=== PATIENT | female | born 1975 | race Caucasian/White ===

== ENCOUNTER 2022-12-31 13:45 | Outpatient (RCR) | payer OTHER, SELFPAY | END 2023-04-30 23:59 | disposition home or self-care (01) | PROVIDERS: PCP Family Medicine; Visit Provider Family Medicine | DX: S06.0X0D Concussion without loss of consciousness, subsequent encounter (principal); M54.9 Dorsalgia, unspecified; Z51.89 Encounter for other specified aftercare | CPT/HCPCS: 97110; 97140; 97162 ==

== ENCOUNTER 2023-04-02 15:21 | Emergency (ER) | payer OTHER, SELFPAY ==
[2023-04-02 15:24] VITALS: BP 137/89; PULSE 67; RESP 20; TEMP 36.2; O2SAT 987; BMI 41.1
--- NOTE | 2023-04-02 15:51 | ED.UPPEXIN ---
HPI - Extremity Injury (Upper) General Chief Complaint: Extremity Pain/Injury, Upper Stated Complaint: Injury on left pointer finger Time Seen by Provider: 04/02/23 15:24 History of Present Illness HPI narrative: This 47-year-old female has an injury to her left index finger that occurred yesterday. She states that she was throwing down a piece of ceramic and sustained a avulsion type injury to the pad at the distal portion of her left index finger. She applied a Band-Aid yesterday and today had too much pain trying to remove the bandage as the dressing is adhered to the wound. She states that her tetanus is up-to-date. Related Data Home Medications Medication Instructions Recorded Confirmed atenolol 25 mg tablet 25 mg PO DAILY 04/02/23 04/02/23 fluoxetine 20 mg capsule 20 mg PO DAILY 04/02/23 04/02/23 fluoxetine 40 mg capsule 40 mg PO DAILY 04/02/23 04/02/23 gabapentin 100 mg capsule PO 04/02/23 omeprazole 40 mg capsule,delayed 40 mg PO DAILY 04/02/23 04/02/23 release tramadol 50 mg tablet 50 mg PO DAILY PRN 04/02/23 04/02/23 Allergies Allergy/AdvReac Type Severity Reaction Status Date / Time diphenhydramine Allergy Intermediate Verified 04/02/23 15:30 [From Shane] Review of Systems Status of ROS: Reports: 10 or more systems reviewed and unremarkable except as noted in History and below Narrative: Constitutional: No fevers, no weight gain or loss. Eyes: No discharge. No vision changes. HENT: No congestion, no sore throat, no ear pain. Cardiovascular: No chest pain, no palpitations. Respiratory: No shortness of breath, no wheezes, no cough. Gastrointestinal: No abdominal pain, no vomiting, no diarrhea. Genitourinary: No dysuria, no hematuria. Musculoskeletal: Normal range of motion. Skin: No rashes, no pruritis. Neurological: No dizziness, weakness, sensory change, speech change. Endo/Heme/Allergies: No bruising or bleeding. No polydipsia. Pysch: no suicidality, no anxiety, no insomnia. All other systems reviewed and are negative. Exam Narrative: Exam Narrative: Constitutional: Well-developed, well-nourished, no acute distress. HEENT: Normocephalic, atraumatic. Neck: Normal range of motion. Nontender. Supple. Heart: Intact distal pulses. Lungs: No chest discomfort. No wheezes, rhonchi, or rales. Abdomen: Nontender. Back: Normal range of motion. Extremities: Normal range of motion. Small avulsion type injury of the pad on the distal portion of the left index finger. Skin: Intact. No rash. Warm. No erythema or pallor. Neurologic: No altered sensation. No weakness. Alert and oriented. Psychiatric: No suicidality. No anxiety or depression. No insomnia. Nursing notes and vitals signs are reviewed. Const: Vital Signs, click to edit/add: Vital Signs - 24 hr 04/02/23 15:24 Temperature 97.1 F L Pulse Rate [Pulse Oximeter] 67 Respiratory Rate 20 Blood [facility] 137/89 Pulse Oximetry 987 H Oxygen Delivery Me thod Room Air Course Vital Signs Vital signs: Initial Vital Signs Temperature 97.1 F L 04/02/23 15:24 Temperature Source Temporal Artery Scan 04/02/23 15:24 Pulse Rate 67 04/02/23 15:24 Respiratory Rate 20 04/02/23 15:24 Blood Pressure 137/89 04/02/23 15:24 Blood Pressure Mean 105 04/02/23 15:24 Blood Pressure Position Sitting 04/02/23 15:24 Pulse Oximetry 987 H 04/02/23 15:24 Oxygen Delivery Method Room Air 04/02/23 15:24 Vital Signs Temperature 97.1 F L 04/02/23 15:24 Pulse Rate 67 04/02/23 15:24 Respiratory Rate 20 04/02/23 15:24 Blood Pressure 137/89 04/02/23 15:24 Pulse Oximetry 987 H 04/02/23 15:24 Oxygen Delivery Method Room Air 04/02/23 15:24 Temperature 97.1 F L 04/02/23 15:24 Pulse Rate 67 04/02/23 15:24 Respiratory Rate 20 04/02/23 15:24 Blood Pressure 137/89 04/02/23 15:24 Pulse Oximetry 987 H 04/02/23 15:24 Oxygen Delivery Method Room Air 04/02/23 15:24 MDM - Extremity Injury (Upper) MDM Narrative Medical decision making narrative: This patient has an injury to her left index finger. A bandage was too painful to remove so she came in for further evaluation and treatment. She did soak her finger in liquid here for about 15 minutes and the bandage was removed without much discomfort. She does have a small avulsion type injury on the palmar aspect of the distal portion of her left index finger. There is no need for additional repair at this time besides the fact that it is an injury that occurred more than 12 hours ago. The wound was cleansed and a nonstick dressing was applied and instructions regarding wound care were given. Discharge Plan Discharge Clinical Impression: Laceration Patient Disposition: Home, Self-Care Condition: Stable Additional Instructions: Keep dressing in place for 1-2 days then a regular Band-Aid can be used for ongoing care of this wound. Use [id number] medicines also as needed and directed. Return if worsening. Prescriptions: No Action fluoxetine 40 mg capsule 40 mg PO DAILY atenolol 25 mg tablet 25 mg PO DAILY omeprazole 40 mg capsule,delayed release(DR/EC) 40 mg PO DAILY tramadol 50 mg tablet 50 mg PO DAILY PRN gabapentin 100 mg capsule PO fluoxetine 20 mg capsule 20 mg PO DAILY Follow Up/Referrals: Viviane Marie MD [Primary Care Provider] - Stand Alone Forms: [employer] Info Instructions
== END 2023-04-02 16:19 | disposition home or self-care (01) ==
LOC: ED 16:12
PROVIDERS: Emergency Provider Emergency Medicine Emergency Medical Services; PCP Family Medicine
DX: S61.211A Laceration without foreign body of left index finger without damage to nail, initial encounter (principal); W26.9XXA Contact with unspecified sharp object(s), initial encounter
CPT/HCPCS: 99282; 99283; 99284

== ENCOUNTER 2023-07-13 10:09 | Emergency (ER) | payer OTHER, SELFPAY ==
[2023-07-13] VITALS (14 sets, daily range): BP systolic 140–158; BP diastolic 87–99; PULSE 70–91; RESP 16; TEMP 36.3–36.6; O2SAT 93–98; BMI 41.5
--- NOTE | 2023-07-13 10:41 | ED.GENADULT ---
HPI - General Adult General Chief complaint: Skin/Abscess/Foreign Body Stated complaint: rash on face, sore throat Time Seen by Provider: 07/13/23 10:22 History of Present Illness HPI narrative: This 48-year-old woman comes in reporting red and warmth around her face and anterior neck and upper chest that began this morning. She also reports a sore throat. She wonders if it might be an allergy reaction. She did have a cortisone shot into her right knee yesterday but has had this before. She is not on any new medicines. She states that she did start taking metformin about 6 weeks ago. She does not report any symptoms of angioedema or airway compromise. She does not have any significant cough. She does report an occasional cough but this is not new. Related Data Home Medications Medication Instructions Recorded Confirmed atenolol 25 mg tablet 25 mg PO DAILY 04/02/23 07/13/23 fluoxetine 20 mg capsule 20 mg PO DAILY 04/02/23 07/13/23 fluoxetine 40 mg capsule 40 mg PO DAILY 04/02/23 07/13/23 gabapentin 100 mg capsule 200 mg PO TID 04/02/23 07/13/23 omeprazole 40 mg capsule,delayed 40 mg PO DAILY 04/02/23 07/13/23 release tramadol 50 mg tablet 50 mg PO DAILY PRN 04/02/23 07/13/23 bupropion HCl 150 mg 24 hr tablet, 150 mg PO QAM 07/13/23 07/13/23 extended release Previous Rx's Medication Instructions Recorded cephalexin 500 mg capsule 500 mg PO QID 7 days #28 caps 07/13/23 hydrocodone 5 mg-acetaminophen 325 1 tab PO Q4-6H PRN pain #15 tabs 07/13/23 mg tablet Allergies Allergy/AdvReac Type Severity Reaction Status Date / Time diphenhydramine Allergy Intermediate Verified 07/13/23 10:12 [From Shane] Review of Systems Status of ROS: Reports: 10 or more systems reviewed and unremarkable except as noted in History and below Narrative: Constitutional: No fevers, no weight gain or loss. Eyes: No discharge. No vision changes. HENT: No congestion, no ear pain. She reports a sore throat. Cardiovascular: No chest pain, no palpitations. Respiratory: No shortness of breath, no wheezes, no cough. Gastrointestinal: No abdominal pain, no vomiting, no diarrhea. Genitourinary: No dysuria, no hematuria. Musculoskeletal: Normal range of motion. Skin: Redness diffusely around her face and anterior neck and upper chest. She reports increased warmth and pain in this same area. Neurological: No dizziness, weakness, sensory change, speech change. Endo/Heme/Allergies: No bruising or bleeding. No polydipsia. Pysch: no suicidality, no anxiety, no insomnia. All other systems reviewed and are negative. [facility] Social History (System 07/20/22 @ 10:27 by Janee Garcia) Smoking Status: Former smoker Do you use any of these nicotine containing products: None Second hand tobacco smoke exposure: No How often do you have a drink containing alcohol: never AUDIT-C Alcohol total score: 0 Non-prescribed substance use: denies use service: No Exam Narrative: Exam Narrative: Constitutional: Well-developed, well-nourished, no acute distress. HEENT: Normocephalic, atraumatic. Pharyngeal erythema. No sign of angioedema. Neck: Normal range of motion. Nontender. Supple. Heart: Regular. No murmurs. Normal rate. Intact distal pulses. Lungs: Clear to auscultation. No chest discomfort. No wheezes, rhonchi, or rales. Abdomen: Normal bowel sounds. Nontender. No rebound tenderness. Genitalia: Deferred. Back: No midline tenderness. Normal range of motion. Extremities: Normal range of motion. No injury. Skin: Intact. Erythema with increased warmth and some pain around her face, anterior neck, and upper chest. Neurologic: No altered sensation. No weakness. Alert and oriented. Psychiatric: No suicidality. No anxiety or depression. No insomnia. Nursing notes and vitals signs are reviewed. Const: Vital Signs, click to edit/add: Vital Signs - 24 hr 07/13/23 10:14 07/13/23 11:24 07/13/23 11:26 Temperature 97.3 F L Pulse Rate 76 70 Pulse Rate [Pulse Oximeter] 91 Respiratory Rate 16 16 Blood Pressure 150/99 H Blood Pressure [Ri ght Upper Arm] 158/98 H Pulse Oximetry 97 96 95 Oxygen Delivery Me thod Room Air 07/13/23 11:27 07/13/23 11:30 07/13/23 11:32 Temperature Pulse Rate 76 78 75 Pulse Rate [Pulse Oximeter] Respiratory Rate 16 Blood Pressure 146/95 H Blood Pressure [Ri ght Upper Arm] Pulse Oximetry 95 93 95 Oxygen Delivery Me thod Course Vital Signs Vital signs: Initial Vital Signs Temperature 97.3 F L 07/13/23 10:14 Temperature Source Oral 07/13/23 10:14 Pulse Rate 91 07/13/23 10:14 Pulse Rhythm Regular 07/13/23 10:14 Pulse Strength 3+ Normal 07/13/23 10:14 Respiratory Rate 16 07/13/23 10:14 Blood Pressure 158/98 H 07/13/23 10:14 Blood Pressure Mean 118 H 07/13/23 10:14 Blood Pressure Position Sitting 07/13/23 10:14 Pulse Oximetry 97 07/13/23 10:14 Oxygen Delivery Method Room Air 07/13/23 10:14 Vital Signs Temperature 97.3 F L 07/13/23 10:14 Pulse Rate 91 07/13/23 10:14 Respiratory Rate 16 07/13/23 10:14 Blood Pressure 158/98 H 07/13/23 10:14 Pulse Oximetry 97 07/13/23 10:14 Oxygen Delivery Method Room Air 07/13/23 10:14 Temperature 97.3 F L 07/13/23 10:14 Pulse Rate 75 07/13/23 11:32 Respiratory Rate 16 07/13/23 11:32 Blood Pressure 146/95 H 07/13/23 11:32 Pulse Oximetry 95 07/13/23 11:32 Oxygen Delivery Method Room Air 07/13/23 10:14 Medical Decision Making [facility] Narrative Medical decision making narrative: This 48-year-old female comes in reporting redness and warmth with pain around her face and anterior neck and upper chest. These symptoms began this morning. She was initially thinking this might be some kind of allergic reaction but her presentation is more suspicious for infection actually. I did acquire lab results and her sed rate and C reactive protein return in normal range. Most notable finding is an increased white count at around 16,000. It seems that but she is experiencing is a type of cellulitis. Her exam is otherwise normal. She is maintaining reassuring vital signs. She does not have tachycardia or hypotension or fever. There are no triggers to indicate a workup for sepsis at this time. The patient did receive an intramuscular injection of Rocephin 1 g. She also received prescription for Keflex and [place]. IA advised her regarding signs and symptoms that would indicate a need for return and re-evaluation. Lab Data Labs: Lab Results 07/13/23 07/13/23 Range/Units 10:46 10:50 WBC 16.23 H (4.50-11.00) K/uL RBC 4.61 (4.00-5.20) m/uL Hgb 13.6 (12.0-16.0) gm/dL Hct 41.5 (33.0-51.0) % MCV 90 (80-100) fL MCH 30 (26-34) pg MCHC 33 (32-36) gm/dL RDW Coeff of Montrell 12.8 (11.5-15.5) % Plt Count 404 (140-440) K/uL Neut % (Auto) 86.0 H (42.0-72.0) % Lymph % (Auto) 10.4 L (20-44) % Steele % (Auto) 3.1 (0.0-11.0) % Eos % (Auto) 0.0 (0.0-7.0) % Baso % (Auto) 0.1 (0.0-3.0) % Neut # (Auto) 14.00 H (1.7-7.0) K/uL Lymph # (Auto) 1.70 (0.90-2.90) K/uL Steele # (Auto) 0.50 (0.00-0.90) K/UL Eos # (Auto) 0.00 (0.00-0.50) K/uL Baso # (Auto) 0.00 (0.00-0.30) K/uL Abs Immat Gran (auto) 0.10 (0.00-0.30) K/uL Imm/Tot Granulo (auto) 0.4 % ESR 9 (2-20) mm/hr Sodium 140 (135-149) mmol/L Potassium 4.1 (3.6-5.1) mmol/L Chloride 107 (96-114) mmol/L Carbon Dioxide 23 (20-32) mmol/L Anion Gap 10 (7-15) mEq/L BUN 21 (5-24) mg/dL Creatinine 0.6 (0.5-1.5) mg/dL Estimated Creat Clear 115.67 Estimated GFR 111 ml/min Glucose 110 (60-115) mg/dL Calcium 9.8 (8.4-10.6) mg/dL C-Reactive Protein < 0.5 L (0.5-1.0) mg/dL Group A Strep DNA NOT DETECTED (Not Detectd) Discharge Plan Discharge Clinical Impression: Cellulitis Patient Disposition: Home, Self-Care Condition: Stable Additional Instructions: Take medication as prescribed. Follow up with MD or return if symptoms are persistent or worsening. Prescriptions: New hydrocodone-acetaminophen 5-325 mg tablet 1 tab PO Q4-6H PRN (Reason: pain) Qty: 15 0RF cephalexin 500 mg capsule 500 mg PO QID 7 Days Qty: 28 0RF No Action fluoxetine 40 mg capsule 40 mg PO DAILY atenolol 25 mg tablet 25 mg PO DAILY omeprazole 40 mg capsule,delayed release(DR/EC) 40 mg PO DAILY tramadol 50 mg tablet 50 mg PO DAILY PRN gabapentin 100 mg capsule 200 mg PO TID fluoxetine 20 mg capsule 20 mg PO DAILY bupropion HCl 150 mg tablet extended release 24 hr 150 mg PO QAM Follow Up/Referrals: Tiki Godinez MD [Primary Care Provider] - Stand Alone Forms: [email or web address] Info Instructions
[2023-07-13 11:02] LABS: Basophils Percent Auto 0.1 % (0.0-3.0); Hematocrit 41.5 % (33.0-51.0); Hemoglobin* 13.6 gm/dL (12.0-16.0); Immature Granulocytes Pct Auto 0.4 %; Lymphocytes Percent Auto 10.4 % (20-44); Mean Corpuscular HGB Conc 33 gm/dL (32-36); Mean Corpuscular Hemoglobin 30 pg (26-34); Mean Corpuscular Volume 90 fL (80-100); Monocytes Percent Auto 3.1 % (0.0-11.0); Platelet Count* 404 K/uL (140-440); RDW Coefficient of Variation % 12.8 % (11.5-15.5); Red Blood Count 4.61 m/uL (4.00-5.20); White Blood Count* 16.23 K/uL (4.50-11.00)
[2023-07-13 11:18] LABS: Chloride* 107 mmol/L (96-114); Sodium* 140 mmol/L (135-149)
[2023-07-13 11:19] LABS: Potassium* 4.1 mmol/L (3.6-5.1)
[2023-07-13 11:21] LABS: Creatinine* 0.6 mg/dL (0.5-1.5); Est. Creatinine Clearance* 115.67; Estimated Glomerular Filt Rate 111 ml/min
[2023-07-13 11:21] LABS: Strep A DNA Probe* NOT DETECTED (Not Detectd)
[2023-07-13 11:22] LABS: Anion Gap 10 mEq/L (7-15); Blood Urea Nitrogen* 21 mg/dL (5-24); Calcium* 9.8 mg/dL (8.4-10.6); Carbon Dioxide* 23 mmol/L (20-32); Glucose* 110 mg/dL (60-115)
[2023-07-13 11:26] LABS: C Reactive Protein* < 0.5 mg/dL (0.5-1.0)
[2023-07-13 11:28] LABS: Slide Review Reflex No
[2023-07-13 11:55] LABS: Erythrocyte SedimentationRate* 9 mm/hr (2-20)
[2023-07-13] MEDS: cefTRIAXone 1 GM VIAL IM (12:36)
[2023-07-13] MEDS: LIDOCAINE 1% 5 ml (pf) 5 ML VIAL 2.1 ML IM (12:37)
== END 2023-07-13 12:42 | disposition home or self-care (01) ==
PROVIDERS: Emergency Provider Emergency Medicine Emergency Medical Services; PCP Family Medicine
DX: L03.211 Cellulitis of face (principal)
CPT/HCPCS: 36415; 80048; 85025; 85651; 86140; 87651; 96372; 99284; J0696

== ENCOUNTER 2024-11-26 14:38 | Emergency (ER) | payer OTHER, SELFPAY ==
--- OUTSIDE RECORDS SUMMARY | 2024-11-26 14:40 | XMS_ITS | Clinical Summary ---
Author Organization [facility] Address [address] , [address] [place] [address] Phone Care Team Providers Care Television Antenna Installer Name Role Phone Kaur Lieberman Unavailable Unavailable Conditions or Problems Problem Name Problem Code Onset Date Status Entry Date Provider Comment Standard Description Annotate Elbow pain, unspecified 49932114 (SNOMED CT) Active Kal Méndez MD Pain of elbow region Hand numbness 854847048 (SNOMED CT) Active Kal Méndez MD Numbness of hand Median neuropathy, right [id number] (SNOMED CT) Active Kal Méndez MD Median neuropathy Medications No information available. Medications Administered No information available. Allergies, Adverse Reactions, Alerts No information available. Results Date Name Value Unit Range Flag Description Internal Other: Authorizatio n - OBS [email or web address] Yes Authoriza tion: Release of Information - Authorize [facility] - Payment and Healthcare Operations ROIAUTHOTHER Yes Authoriz ation: Release of Information - Authorize Others/Insurance - Payment and Healthcare Operations HIECONSENT Yes Consent To Release information to the Health Information Exchange (HIE) [email or web address] Yes Authorizat ion: Authorization for [facility] to leave messages, voicemail, send text messages, send emails AUTHRELHCARE Yes Authoriz ation: Release/Retrieval of Information to/from Healthcare Facilities, Pharmacy Benefit Payers and Providers [email or web address] Yes Authoriz ation: Notice of privacy practices AUTHBENEFIT Yes Authoriza tion: Assignment of Benefits and Payment Agreement Internal Other: Verbal Autho rization/Emergency Contact - OBS VERBAL_EMER Done Verbal au thorization and emergency contact Plan of Care No information available. Procedures Code Procedure Name Date Entry Date CPT-21745 Nerve Conduction 9-10 studies CPT-77411 EMG with NCS (5+ muscles) - 1 limb 05/17 Vital Signs No information available. Immunizations No information available. Advance Directives No information available.
--- OUTSIDE RECORDS SUMMARY | 2024-11-26 14:41 | XMS_ITS | Clinical Summary ---
Author Organization [id number] Address [address] [place] [id number] Care Team Providers Care Media Professional Name Role Phone Cony López MD Unavailable [phone] Tiki Godinez MD Primary Care Prov ider Allergies Active Allergy Reactions Criticality Noted Date Comments Amoxicillin Flushing,GI Upset,Na usea And Vomiting,Rash 08/20/2024 Buspirone Intolerance-Can't Take 07/11/2024 More anxious, crabby, crawling out of her skin Diphenhydramine Other - Describe In Comment Field High 04/02/2023 Levofloxacin 10/25/2007 Localized rash around IV site Vancomycin Rash 11/01/2007 Medications MULTIVITAMIN TAB take 1 tablet by oral route once daily with food 0 007 Active cholecalciferol (Vitamin D-3) 2,000 unit capsuleIndicatio ns:Vitamin D deficiency Take 2000 units once daily. On Tuesdays and Fridays, take an additional capsule for a total daily dose of 4000 units. This would result in a total weekly dose of 18,000 units. 023 Active omeprazole (PRILOSEC) 20 mg Delayed-Release capsuleIndicatio ns:Chronic GERD Take 1 Capsule (20 mg) by mouth once daily before a meal. 90 Capsule 3 024 Active hydrocortisone (ANUSOL-HC) 2.5 % rectal creamIndications :Hemorrhoids, external Apply topically to affected area(s) 4 times daily if needed for Hemorrhoid Pain/Itch. 28.35 g 5 024 Active atenoloL (TENORMIN) 25 mg tabletIndication s:Anxiety Take 1 Tablet (25 mg) by mouth once daily. 90 Tablet 3 024 Active clotrimazole (LOTRIMIN) 1 % creamIndications :Rash Apply topically to affected area(s) two times daily. 226 g 1 025 Active gabapentin 100 mg capsuleIndicatio ns:Back pain, unspecified back location, unspecified back pain laterality, unspecified chronicity 4 tab am 5 tab at bedtime. May increase to 6 tabs twice daily. Fill now please 410 Capsule 3 025 Active acetaminophen 500 mg tablet Take 1 Tablet (500 mg) by mouth every 6 hours. Max acetaminophen dose: 4000mg in 24 hrs. 025 Active traMADoL 50 mg tabletIndication s:Back pain, unspecified back location, unspecified back pain laterality, unspecified chronicity TAKE ONE TABLET BY MOUTH ONCE DAILY NEEDED. USE SPARINGLY FOR SIGNIFICANT PAIN;CAUTION: OPIOID - RISK OF OVERDOSE AND ADDICTION. Chronic pain patient requests #30 quantity. 30 Tablet 1 025 Active sertraline (ZOLOFT) 50 mg tabletIndication s:Generalized anxiety disorder,Severe episode of recurrent major depressive disorder, without psychotic features (HC) Week 1: Take 1/2 tab (25mg) by mouth once daily; Week 2: Take 1 tab (50mg) by mouth once daily; week 3: Take 1 and 1/2 tabs (75mg) once daily; Week 4: take 2 tabs (100mg) by mouth once daily 60 Tablet 3 025 Active dextroamphetamin e-amphetamine (Adderall XR) 15 mg Extended-Release capsuleIndicatio ns:Attention deficit hyperactivity disorder (ADHD), predominantly inattentive type Take 1 Capsule (15 mg) by mouth once daily. 30 Capsule 025 Active DULoxetine 60 mg Delayed-release capsuleIndicatio ns:Generalized anxiety disorder,Severe episode of recurrent major depressive disorder, without psychotic features (HC) Take 1 Capsule (60 mg) by mouth once daily. (Week 3) 025 2024 Discontinued DULoxetine 30 mg Delayed-release capsuleIndicatio ns:Generalized anxiety disorder Take 1 Capsule (30 mg) by mouth once daily in the morning. Take along with the 60mg capsule for a total daily dose of 90mg daily 30 Capsule 1 025 2024 Discontinued(* Med complete/Regim en complete/Level of care change) dextroamphetamin e-amphetamine (Adderall XR) 15 mg Extended-Release capsuleIndicatio ns:Attention deficit hyperactivity disorder (ADHD), predominantly inattentive type Take 1 Capsule (15 mg) by mouth once daily. 30 Capsule 025 2024 Discontinued(R eorder (E-cancel not sent)) DULoxetine 60 mg Delayed-release capsuleIndicatio ns:Generalized anxiety disorder,Severe episode of recurrent major depressive disorder, without psychotic features (HC) TAKE 1 CAPSULE (60MG) BY MOUTH ONCE DAILY. (WEEK 3) 30 Capsule 1 025 2024 Discontinued(* Med complete/Regim en complete/Level of care change) Active Problems Problem Noted Date Diagnosed Date Controlled substance agreeme nt signed, By Tiara Valencia, DNP, PUBLIC HEALTH PHYSICIAN, INK PRINTER, psychiatry on 08.20.2024 / Bre Uriarte LPN 08/21/2024 Overview (08/21/2024): Severe episode of recurrent major depressive disorder, without psychotic features 05/24/2024 Carpal tunnel syndrome on right 03/23/2024 Osteoarthritis (arthritis due to wear and tear o f joints) 07/07/2022 Umbilical hernia without obstruction and without gangrene 02/09/2021 Anxiety 02/09/2021 Adenomatous colon polyp 01/25/2017 Overview (01/25/2017): Colonoscopy 01/2017 polyp repeat in 5 years Vitamin D deficiency 02/25/2015 Menorrhagia 04/12/2013 Anemia 04/12/2013 healthcare maintenance 11/03/2007 Overview (11/03/2007): Pap abnormal 1999 Cholesterol Dt 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, didelphis uteri Encounters Date Type Department Care Team Description 11/21/2024 2:15 PM CDT Telemedicine [facility] [address] [place] [phone] Coretta Kang LICSW Individual Therapy; Telehealth 11/21/2024 Travel 11/20/2024 Telephone [facility] [address] [place] [address] Coretta Kang LICSW Appointment 11/14/2024 1:00 PM CDT Telemedicine [facility] [address] [place] [address] Tiara Valencia NP Telehealth; Medication Management 11/14/2024 Travel 11/07/2024 Refill [facility] [address] [place] [address] Tiara Valencia NP Refill Request (Duloxetine) 10/26/2024 Medical Messaging [facility] [address] [place] [address] Sang Lua DPM 3 quick questions 10/24/2024 2:15 PM CDT Telemedicine [facility] [address] [place] [address] Coretta Kang LICSW Individual Therapy; Telehealth 10/24/2024 10:45 AM CDT Telemedicine [facility] [address] [place] [address] Tiki Godinez MD Medication Management 10/24/2024 Travel 10/22/2024 Telephone [facility] [address] [place] [address] Coretta Kang LICSW Appointment 10/17/2024 1:30 PM CDT Office Visit [facility] [address] [place] [address] Sang Lua DPM Follow Up (Bilateral foot, R>L) 10/17/2024 Travel 10/12/2024 Telephone [facility] [address] [place] [address] Viviane Carvalho, RN Mental Health Care Coordination 10/11/2024 Telephone [facility] [address] [place] [address] Viviane Carvalho, RN Mental Health Care Coordination 10/10/2024 Telephone [facility] [address] [place] [address] Viviane Carvalho, RN Mental Health Care Coordination 10/08/2024 1:00 PM CDT Telemedicine [facility] [address] [place] [address] Tiara Valencia NP Telehealth; Medication Management 10/08/2024 Travel 10/02/2024 3:30 PM CDT Office Visit [facility] [address] [place] [address] Sang Lua DPM Follow Up (Right foot/ankle) 10/02/2024 Travel 09/27/2024 12:54 PM CDT - 09/27/2024 11:59 PM CDT Hospital Encounter [facility] [address] [place] [address] Lexie Noonan MD Acute foot pain, right; Peroneal tendinitis, right 09/27/2024 Travel 09/25/2024 Telephone [facility] [address] [place] [address] Sang Lua DPM Appointment 09/21/2024 12:15 PM CDT Ancillary Procedure [facility] [address] [place] [address] 09/21/2024 11:30 AM CDT Office Visit [facility] [address] [place] [address] Lexie Noonan MD Lump (lump on anus ); Foot Pain/problem (Foot pain and swelling /Right foot - fell, felt a snap) 09/21/2024 Travel from Last 3 Months Immunizations Immunization Administration Dates Next Due AMB Influenza, IIV3 (Age >=3 years)(Flu Clinic Only) 02/05/2012,02/25/2011,02/27/2010 COVID-19 VACCINE SPIKEVAX (M ODERNA 50MCG/0.5ML) 12YO+ PFS 03/07/2024,03/02/2023 COVID-19 vaccine ([employer]anced[employer] NTech 30mcg/0.3mL) 12YO+ BIVALENT PF, MDV 04/08/2022 COVID-19 vaccine ([place] [facility]-[employer] NTech 30mcg/0.3mL) 12YO+ LISANDRA-SUCROSE PF, MDV 06/27/2021 INFLUENZA, IIV3 PF (AGE >= 6 MO) 03/07/2024 Influenza, IIV3 (Age 6-35 mos) 02/25/2011 Influenza, IIV3 (Age >=3 years) 02/28/2008,03/21 Influenza, IIV4 03/02/2023,03/16/2022,02/09/2021 Td (Age >=7 Years) 11/12/2020,05/09/2003, 992 Td, Preservative Free (age >= 7 Years) ,08/30/1991 Tdap 12/19/2009 Family History Medical History Relation Name Comments Coronary artery disease Father Father Diabetes Father Father type 2 Hypertension Father Father Good Health Half-Brother 1 Other Half-Brother 2 intestinal is sues Good Health Half-Sister 1 Good Health Half-Sister 2 Cancer Maternal Grandfather Stomach Cancer-colon Maternal Grandmother Maternal grama Hypertension Mother Mother Other Mother Mother endometriosis, renal insufficiency Thyroid Disease Mother Mother also GI conc erns GI Disease Paternal Aunt Diabetes Paternal Grandmother Paternal grama Heart Disease Paternal Grandmother Paternal grama Anesthesia Malignant Hyperthermia No Family History Anesthesia Problem No Family History Cancer-breast No Family History Relation Name Status Comments Father Father Half-Brother 1 Alive Half-Brother 2 Alive Half-Sister 1 Alive Half-Sister 2 Alive Maternal Grandfather Maternal Grandmother Maternal grama Mother Mother Paternal Aunt Paternal Grandmother Paternal grama Social History Tobacco Use Types Packs/Day Years Used Date Smoking Tobacco: Former Cigarettes 0.3 27.8 0 07/11/1993 - 05/13/2021 Smokeless Tobacco: Never Tobacco Cessation:Counseling Given: Yes Comments:2-4 cigs per day, sometimes none Alcohol Use Standard Drinks/Week Comments Not Currently 0 (1 standard drink = 0.6 oz pur e alcohol) PHQ-2 Answer Date Recorded PHQ-2 TOTAL SCORE 6 11/21/2024 Social Connections Answer Date Recorded Do you often feel lonely or isolated from those around you? 0 08/01/2024 Financial Resource Strain Answer Date R ecorded Difficulty of Paying Living Expenses 3 07/28/2023 Difficulty of Paying Living Expenses Not on file 07/28/2023 Food Insecurity Answer Date Recorded Do you worry your food will run out before you are able to buy more? 1 08/01/2024 Transportation Needs Answer Date Record ed Does lack of transportation keep you from medica l appointments? 1 08/01/2024 Does lack of transportation keep you from work, meetings or getting things that you need? 1 08/01/2024 Housing Stability Answer Date Recorded What is your housing situation today? 1 08/01/2024 Utilities Answer Date Recorded Do you have trouble paying f or utilities (for example, heat, electricity, water, phone)? 1 08/01/2024 Comments No Sex and Gender Information Value Date Recorded Sex Assigned at Female 11/11/2020 9:38 PM CDT Legal Sex Female 5:48 AM BANKING SPECIALIST Gender Identity Female 11/11/2020 9:38 PM CDT Sexual Orientation Straight 11/11/2020 9: 38 PM CDT Occupation Industry Job Start Date Job End Date insurance Not on file Not on file Not on file Obstetrics History Para Term AB IAB SAB Ectopic Multiple Livin g Live Births 2 1 1 1 1 1 1 Date Outcome GA Total Labor Labor/2nd/3rd Weight Sex Type Anes PTL Kaitlin A1 A5 Name Clin 04/29 Term 41w 0d M C-Sec tion Living Perfecto 12/07 SAB Last Filed Vital Signs Vital Sign Reading Time Taken Comments Blood Pressure 126/86 10/17/2024 1:38 PM CDT Pulse 102 10/17/2024 1:38 PM CDT Temperature 36.3 C (97.3 F) 11/06/2021 5:21 PM CDT Respiratory Rate 16 11/06/2021 5:21 PM CDT Oxygen Saturation 95% 10/17/2024 1:38 PM CDT Inhaled Oxygen Concentration - - Weight 119.9 kg (264 lb 6.4 oz) 08/20/2024 1:10 PM CDT Height 173 cm (5' 8.11) 07/02/2024 9:10 AM BANKING SPECIALIST Body Mass Index 40.07 07/02/2024 9:10 AM BANKING SPECIALIST Plan of Treatment Upcoming Encounters Date Type Department Care Team (Late st Contact Info) Description 12/03/2024 11:05 AM CDT Office Visit [facility] [address] [place] [address] Андрей Castro MD [address] [place] [address] 12/26/2024 11:30 AM CDT Telemedicine [facility] [address] [place] [address] Tiara Valencia NP [address] [place] [address] 12/26/2024 2:15 PM CDT Office Visit [facility] [address] [place] [phone] Coretta Kang LICSW [address] [place] [address] 01/23/2025 2:15 PM CDT Office Visit [facility] [address] [place] [phone] Coretta Kang LICSW [address] [place] [address] 02/27/2025 2:15 PM CDT Office Visit [facility] [address] [place] [phone] Coretta Kang LICSW [address] [place] [address] Health Maintenance Due Date Last Done Comments Hepatitis B series for 19+ (1 of 3 - 19+ 3-dose series) 1994 Colonoscopy through age 75 01/21/2022 01/21/2017, Mammogram for age 45-75 12/13/2024 12/14/19, 11/12/2020, 07/17/2019, Additional history exists Influenza Vaccine (#1) 2025 , 03/02/2023, 03/16/2022, Additional history exists BMI (ht and wt on same day) for age 18+ 07/02/2025 07/02/2024, 12/07/2023, 07/28/2023, Additional history exists Pap test for age 21-65 11/12/2025 , 11/12/2020, 11/12/2020, Additional history exists Depression screening for age 12+ 11/21/2025 11/21/2024, 08/22/2024, 08/20/2024, Additional history exists Lipids for age 45-75 12/06/2028 12/07/2023, 07/28/2023, 07/07/2022, Additional history exists Tetanus booster 11/12/2030 11/12/2020, 0711/2020, 12/19/2009, Additional history exists HIV for age 15-65 Completed 07/07/2022 Hepatitis C screening for age 18-79 Completed 07/07/2022 COVID-19 vaccine series Completed 03/07/20 24, 03/02/2023, 04/08/2022, Additional history exists Pneumococcal series for age 6-49 Aged Out No longer eligible based on patient's age to complete this topic Procedures Procedure Name Priority Date/Time Associated Diagnosis Comments MR ANKLE RIGHT WO Routine 09/27/2024 1:3 8 PM CDT Acute foot pain, right Peroneal tendinitis, right XR FOOT 3 VIEWS RIGHT Routine 09/21/2024 12:07 PM CDT Acute foot pain, right XR MAMMO BILAT SCREENING Routine 12/14/2023 2:05 PM CDT Encounter for screening mammogram for malignant neoplasm of breast LIPID PANEL W REFLEX MEASURED LDL Routine 12/07/2023 12:02 PM CDT Screening for lipoid disorders LC HIV-1/O/2, 4TH GENERATION Routine 07/07/2022 10:50 AM BANKING SPECIALIST Screening for HIV (human immunodeficiency virus) LC HCV ANTIBODY RFX TO QUANT PCR Routine 07/07/2022 10:50 AM BANKING SPECIALIST Encounter for hepatitis C screening test for low risk patient REGULATORY PROCESS MANAGER THIN PREP PAP SCREEN IMAGED Routine 11/12/2020 9:00 AM CDT Screening for cervical cancer COLONOSCOPY 01/21/2017 10:03 AM CDT from Last 3 Months or Most Recently Relevant to Health Maintenance Results * MR ANKLE RIGHT WO (09/27/2024 1:38 PM CDT) Anatomical Region Laterality Modality ANKLE R Magnetic Resonan ce 09/28/2024 8:55 AM CDT Addenda Addendum by Michael Garcia MD on 10/18/2024 10:09 AM CDT For Patients: As a result of the Cures Act, medical imaging exams and procedure reports are released immediately into your electronic medical record. You may view this report before your referring provider. If you have questions, please contact your health care provider. ADDENDUM/CORRECTION: EXAM: MRI of the right ankle without contrast. TECHNIQUE: Axial, sagittal and coronal T1, PD, PDFS and STIR images of the right ankle. CRL:jmr EXAM: MRI OF THE LEFTRIGHT ANKLE, WITHOUT CONTRAST CLINICAL INDICATION: Acute ankle pain. Instability. PRIOR SURGERY: None. COMPARISON PLAIN FILMS: 11 April 2024. COMPARISON CROSS-SECTIONAL IMAGING STUDIES: None. TECHNICAL: Axial, sagittal and coronal T1, PD, PDFS and STIR images. FINDINGS: OSSEOUS STRUCTURES: Moderate-sized os trigonum has some patchy edema at the deep margin at the interface with the talus. Minor patchy edema in the posterior talus. JOINT SPACES: The ankle and subtalar joint spaces are maintained without joint effusion. Upper normal fluid, particularly posterior subtalar joint. No talar dome osteochondral lesion. No joint bodies are identified. The talar-navicular and calcaneocuboid joint spaces are maintained. Joint spaces within the visualized midfoot and at the midfoot-forefoot junction are maintained. LIGAMENTS: Syndesmotic Ligaments: The anterior and posterior syndesmotic ligaments are intact. Lateral Ligaments: The anterior talofibular, calcaneofibular and posterior talofibular ligaments are intact. Medial Ligaments: The superficial and deep components of the deltoid ligament complex are maintained. Spring Ligaments: The calcaneonavicular spring ligament complex is intact. TENDONS: Flexor Tendons: The posterior tibial, flexor digitorum longus and flexor hallucis longus tendons are intact. Extensor Tendons: The anterior extensor tendons are intact. Achilles Tendon: Minor hazy in fibrillated intermediate signal distal tendon. Small effusion retrocalcaneal bursa. Peroneal Tendons: Enlargement of the peroneal longus with patchy and fibrillated intermediate signal from above the fibular groove to the cubital groove distally where there is an edematous os peroneum and some surrounding soft tissue edema. Small amount of fluid throughout the common tendon sheath. Elongated curvilinear morphology of the peroneal brevis suggest partial tear around the lateral malleolus to the peroneal tubercle level. Normal caliber and signal distally. TARSAL TUNNEL: The soft tissues of the tarsal tunnel are normal without mass or fluid collection. No abnormality along the course of the medial or lateral plantar nerves. SINUS TARSI: The structures of the sinus tarsi appear normal. No disruption of the interosseous ligaments or significant effacement of fat. PLANTAR SOFT TISSUES: The plantar fascia is intact. There is no significant plantar calcaneal spur. No atrophy or edema of the abductor digiti minimi muscle belly. OTHER FINDINGS: There is no soft tissue mass or fluid collection. IMPRESSION: 1. Diffuse tendinosis of the peroneal longus with tenosynovitis and irritation/inflammation of os peroneum. 2. Short longitudinal partial tear peroneal brevis. 3. Mild Achilles tendinopathy. 4. Minor posterior impingement/os trigonum syndrome. Dictated by Michael Garcia MD @ 09/28/2024 8:55:07 AM Signed by: Michael Garcia @ 09/28/2024 8:55:07 AM (Electronic Signature) (Electronically Signed) Impressions 09/28/2024 8:55 AM CDT 1. Diffuse tendinosis of the peroneal longus with tenosynovitis and irritation/inflammation of os peroneum. 2. Short longitudinal partial tear peroneal brevis. 3. Mild Achilles tendinopathy. 4. Minor posterior impingement/os trigonum syndrome. Dictated by Michael Garcia MD @ 09/28/2024 8:55:07 AM (Electronically Signed) Narrative 09/28/2024 8:55 AM CDT For Patients: As a result of the Cures Act, medical imaging exams and procedure reports are released immediately into your electronic medical record. You may view this report before your referring provider. If you have questions, please contact your health care provider. EXAM: MRI OF THE LEFTRIGHT ANKLE, WITHOUT CONTRAST CLINICAL INDICATION: Acute ankle pain. Instability. PRIOR SURGERY: None. COMPARISON PLAIN FILMS: 11 April 2024. COMPARISON CROSS-SECTIONAL IMAGING STUDIES: None. TECHNICAL: Axial, sagittal and coronal T1, PD, PDFS and STIR images. FINDINGS: OSSEOUS STRUCTURES: Moderate-sized os trigonum has some patchy edema at the deep margin at the interface with the talus. Minor patchy edema in the posterior talus. JOINT SPACES: The ankle and subtalar joint spaces are maintained without joint effusion. Upper normal fluid, particularly posterior subtalar joint. No talar dome osteochondral lesion. No joint bodies are identified. The talar-navicular and calcaneocuboid joint spaces are maintained. Joint spaces within the visualized midfoot and at the midfoot-forefoot junction are maintained. LIGAMENTS: Syndesmotic Ligaments: The anterior and posterior syndesmotic ligaments are intact. Lateral Ligaments: The anterior talofibular, calcaneofibular and posterior talofibular ligaments are intact. Medial Ligaments: The superficial and deep components of the deltoid ligament complex are maintained. Spring Ligaments: The calcaneonavicular spring ligament complex is intact. TENDONS: Flexor Tendons: The posterior tibial, flexor digitorum longus and flexor hallucis longus tendons are intact. Extensor Tendons: The anterior extensor tendons are intact. Achilles Tendon: Minor hazy in fibrillated intermediate signal distal tendon. Small effusion retrocalcaneal bursa. Peroneal Tendons: Enlargement of the peroneal longus with patchy and fibrillated intermediate signal from above the fibular groove to the cubital groove distally where there is an edematous os peroneum and some surrounding soft tissue edema. Small amount of fluid throughout the common tendon sheath. Elongated curvilinear morphology of the peroneal brevis suggest partial tear around the lateral malleolus to the peroneal tubercle level. Normal caliber and signal distally. TARSAL TUNNEL: The soft tissues of the tarsal tunnel are normal without mass or fluid collection. No abnormality along the course of the medial or lateral plantar nerves. SINUS TARSI: The structures of the sinus tarsi appear normal. No disruption of the interosseous ligaments or significant effacement of fat. PLANTAR SOFT TISSUES: The plantar fascia is intact. There is no significant plantar calcaneal spur. No atrophy or edema of the abductor digiti minimi muscle belly. OTHER FINDINGS: There is no soft tissue mass or fluid collection. Procedure Note Michael Garcia MD - 09/28/2024 For Patients: As a result of the Cures Act, medical imagingexams and procedure reports are released immediately into your electronicmedical record. You may view this report before your referring provider.If you have questions, please contact your health care provider. EXAM: MRI OF THE LEFTRIGHT ANKLE, WITHOUT CONTRAST CLINICAL INDICATION: Acute ankle pain. Instability. PRIOR SURGERY: None. COMPARISON PLAIN FILMS: 11 April 2024. COMPARISON CROSS-SECTIONAL IMAGING STUDIES: None. TECHNICAL: Axial, sagittal and coronal T1, PD, PDFS and STIR images. FINDINGS: OSSEOUS STRUCTURES: Moderate-sized os trigonum has some patchy edema at the deep margin at theinterface with the talus. Minor patchy edema in the posterior talus. JOINT SPACES: The ankle and subtalar joint spaces are maintained without joint effusion.Upper normal fluid, particularly posterior subtalar joint. No talar domeosteochondral lesion. No joint bodies are identified. Thetalar-navicular and calcaneocuboid joint spaces are maintained. Jointspaces within the visualized midfoot and at the midfoot-forefoot junctionare maintained. LIGAMENTS: Syndesmotic Ligaments: The anterior and posterior syndesmotic ligamentsare intact. Lateral Ligaments: The anterior talofibular, calcaneofibular and posteriortalofibular ligaments are intact. Medial Ligaments: The superficial and deep components of the deltoidligament complex are maintained. Spring Ligaments: The calcaneonavicular spring ligament complex is intact. TENDONS: Flexor Tendons: The posterior tibial, flexor digitorum longus and flexorhallucis longus tendons are intact. Extensor Tendons: The anterior extensor tendons are intact. Achilles Tendon: Minor hazy in fibrillated intermediate signal distaltendon. Small effusion retrocalcaneal bursa. Peroneal Tendons: Enlargement of the peroneal longus with patchy andfibrillated intermediate signal from above the fibular groove to thecubital groove distally where there is an edematous os peroneum and somesurrounding soft tissue edema. Small amount of fluid throughout the commontendon sheath. Elongated curvilinear morphology of the peroneal brevissuggest partial tear around the lateral malleolus to the peroneal tuberclelevel. Normal caliber and signal distally. TARSAL TUNNEL: The soft tissues of the tarsal tunnel are normal without mass or fluidcollection. No abnormality along the course of the medial or lateralplantar nerves. SINUS TARSI: The structures of the sinus tarsi appear normal. No disruption of theinterosseous ligaments or significant effacement of fat. PLANTAR SOFT TISSUES: The plantar fascia is intact. There is no significant plantar calcanealspur. No atrophy or edema of the abductor digiti minimi muscle belly. OTHER FINDINGS: There is no soft tissue mass or fluid collection. IMPRESSION: 1. Diffuse tendinosis of the peroneal longus with tenosynovitis andirritation/inflammation of os peroneum. 2. Short longitudinal partial tear peroneal brevis. 3. Mild Achilles tendinopathy. 4. Minor posterior impingement/os trigonum syndrome. Dictated by Michael Garcia MD @ 09/28/2024 8:55:07 AM (Electronically Signed) us Lexie Noonan MD MR Polanco ited Result - Final * XR FOOT 3 VIEWS RIGHT (09/21/2024 12:07 PM CDT) Anatomical Region Laterality Modality FEET, FOOT R Computed Radiogr aphy 09/23/2024 4:51 PM CDT Narrative 09/23/2024 4:51 PM CDT For Patients: As a result of the Cures Act, medical imaging exams and procedure reports are released immediately into your electronic medical record. You may view this report before your referring provider. If you have questions, please contact your health care provider. Indication: Acute foot pain, right Technique: Right foot 3 views 04/11/2024 : Findings: Multiple chronic ossicles lateral hindfoot. Midfoot alignment normal. Mild spurring at the 1st MTP joint. No fracture deformity. No calcaneal spurs. No erosive arthropathy. 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 Dictated by Ramesh De Leon MD @ 09/23/2024 4:51:58 PM (Electronically Signed) Procedure Note Ramesh De Leon MD - 09/23/2024 For Patients: As a result of the Cures Act, medical imagingexams and procedure reports are released immediately into your electronicmedical record. You may view this report before your referring provider.If you have questions, please contact your health care provider. Indication: Acute foot pain, right Technique: Right foot 3 views 04/11/2024 : Findings: Multiple chronic ossicles lateral hindfoot. Midfoot alignment normal. Mildspurring at the 1st MTP joint. No fracture deformity. No calcaneal spurs.No erosive arthropathy. 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 Dictated by Ramesh De Leon MD @ 09/23/2024 4:51:58 PM (Electronically Signed) us Lexie Noonan MD GENERAL IMAGING Fi nal Result * XR MAMMO BILAT SCREENING (12/14/2023 2:05 PM CDT) Anatomical Region Laterality Modality BREASTS, Breast Left, Breast Right Bilateral Mammography Impressions 12/15/2023 1:55 PM CDT There is no radiographic evidence for malignancy. Recommend annual mammograms. MAMMOGRAM ASSESSMENT: ACR 1 Negative PATIENTS: You will also receive a letter with your examination results in an easy to read format. If you have questions about your results, please contact your referring provider. Narrative 12/15/2023 1:55 PM CDT For Patients: As a result of the 21st Century Cures Act, medical imaging exams and procedure reports are released immediately into your electronic medical record. You may view this report before your referring provider. If you have questions, please contact your health care provider. XR MAMMO BILAT SCREENING [[id number]] CLINICAL HISTORY: This is an asymptomatic 48 y.o. patient. INDICATION FOR EXAM: Mammogram Screening. TECHNIQUE: CC & MLO views were obtained. This study was evaluated with the assistance of Computer-Aided Detection. COMPARISON FILM: Yes 11/12/20 [facility] FINDINGS: There are scattered areas of fibroglandular density. There are no dominant masses, suspicious micro calcifications or areas of architectural distortion. us Tiki Godinez MD MAMMO Fi nal Result * (ABNORMAL) LIPID PANEL W REFLEX MEASURED LDL (12/07/2023 12:02 PM CDT) CHOLESTEROL,TOTAL 223(H) 100 - 199 mg/dL 12/08/2023 1:52 AM CDT [facility] Comment: Cholesterol, Total Reference Ranges Desirable <200 mg/dL Borderline 200-239 mg/dL High >=240 mg/dL TRIGLYCERIDES 118 <150 mg/dL 12/08/2023 1:52 AM CDT [facility] HDL CHOLESTEROL 51 >40 mg/dL 1:52 AM CDT [facility] NON-HDL CHOLESTEROL 172(H) <145 mg/dl 12/08/2023 1:52 AM CDT [facility] CHOL/HDL RATIO 4.37 <4.50 12/08/2023 1:52 AM CDT [facility] LDL CHOLESTEROL 148(H) <=130 mg/dL 12/08/2023 1:52 AM CDT [facility] VLDL CHOLESTEROL 24 <=30 mg/dL 12/08/2023 1:52 AM CDT [facility] PROVIDER ORDERED STATUS RANDOM 12/08/2023 1:52 AM CDT [facility] Blood BLOOD SPECIMEN / Unknown Venipuncture / Unknown 12/07/2023 12:02 PM CDT 12/07/2023 12:02 PM CDT Tiki Godinez MD CHEMISTRY Fi nal Result Performing Organization Address City/[facility]/ZIP Co de Phone Number [facility] [address] [place] [address], [place] * LC HCV ANTIBODY RFX TO QUANT PCR (07/07/2022 10:50 AM BANKING SPECIALIST) HCV Ab Non Reactive Non Reactive 07/09/2022 10:07 PM BANKING SPECIALIST [facility] Blood BLOOD SPECIMEN / Unknown Venipuncture / Unknown 07/07/2022 10:50 AM BANKING SPECIALIST 07/07/2022 10:58 AM BANKING SPECIALIST Narrative [facility] ([facility]) - 07/09/2022 10:07 PM BANKING SPECIALIST Performed at: [address] [place] [id number] Medical Billing Associate: Don Whitten MD, Phone: [phone] Tiki Godinez MD LABORATORY Fi nal Result Performing Organization Address City/[facility]/ZIP Co de Phone Number [facility] ([facility]) [address] [place] [id number], [place] * LC HIV-1/O/2, 4TH GENERATION (07/07/2022 10:50 AM BANKING SPECIALIST) HIV Scr 4th Gen Non Reactive Non Reactive 07/09/2022 10:07 PM BANKING SPECIALIST [facility] Comment: HIV Negative HIV-1/HIV-2 antibodies and HIV-1 p24 antigen were NOT detected. There is no laboratory evidence of HIV infection. Blood BLOOD SPECIMEN / Unknown Venipuncture / Unknown 07/07/2022 10:50 AM BANKING SPECIALIST 07/07/2022 10:58 AM BANKING SPECIALIST Narrative [facility] - 07/09/2022 10:07 PM BANKING SPECIALIST Performed at: [address] - [address] [id number] Medical Billing Associate: Dno Whitten MD, Phone: [phone] us Tiki Godinez MD LABORATORY Fi nal Result [facility] ([facility]) [facility] [place] [address], * REGULATORY PROCESS MANAGER THIN PREP PAP SCREEN IMAGED (11/12/2020 9:00 AM CDT) Case Report Gynecologic Cytology Report Case: [id number] Authorizing Provider: Viviane Marie MD Collected: 11/12/2020 0900 Ordering Location: [facility] Received: 11/12/2020 0942 Clinic First Screen: Valerie Medina Specimen: REGULATORY PROCESS MANAGER ThinPrep Vial Screening, Cervical 11/21/2020 11:56 AM CDT [facility] INTERPRETATION/ RESULT NEGATIVE FOR INTRAEPITHELIAL LESION OR MALIGNANCY (NIL) (none) 11/21/2020 11:56 AM CDT [facility] at 1156 CDT ORGANISM(S) Shift in senia suggestive of bacterial vaginosis 11/21/2020 11:56 AM CDT [facility] [employer] ENTRAL LABORATORY SPECIMEN ADEQUACY Satisfactory for evaluation Endocervical component present 11/21/2020 11:56 AM CDT [facility] HPV REQUEST HPV and PAP 11/21/2020 11:56 AM CDT [employer] EN[facility]AL LABORATORY Date of LMP 10/26/20 11/21/2020 11:56 AM CDT [facility] Last Pap Date 06/29/17 11/21/2020 11:56 AM CDT [facility] Last Pap Result NIL 11:56 AM CDT [facility] Abnormal Pap or Reynolds Bx in last 5 years No 11/21/2020 11:56 AM CDT [facility] Menstrual Status Regular Periods 11/21/2020 11:56 AM CDT [facility] Reynolds Bx Done Today No 11/21/2020 11:56 AM CDT [facility] Additional Information None given 11/21/2020 11:56 AM CDT [facility] Comment: Cytology is screened at [facility] - [address], [place] [address] and [facility] - [address], [place] [address] [address] [facility] - [address] [place] [address] Interpreted at [facility] - [address], [place] [address] Automated Review Successful 11/21/2020 11:56 AM CDT [facility] Comment:Specimen processed s uccessfully by automated fruit or nut farmworker device, ThinPrep Imaging System, [employer] ANCILLARY TESTING REGULATORY PROCESS MANAGER HPV Ordered, Please see separate report 11/21/2020 11:56 AM CDT [facility] Note The pap test is a screening technique, not a diagnostic procedure. It is used primarily to screen for squamous cancers and precursor lesions. Published studies have shown that it is subject to both false negative and false positive results. The pap test should not be used as the sole means to diagnose or exclude pre-malignant and malignant lesions. 11/21/2020 11:56 AM CDT [facility] Other (Cervical) Non-Blood / Unknown 11/12/2020 9:00 AM CDT 11/12/2020 9:42 AM CDT Viviane Marie MD PATHOLOGY/CYTOLOGY Final Resu lt [facility] [address] [place] [address], [place] * COLONOSCOPY (01/21/2017 10:03 AM CDT) 01/21/2017 10:0 3 AM CDT Narrative Transcriptions Igor Benson MD - 01/21/2017 11:13 AM CDT Patient Name: Cony Guzman Procedure Date: 01/21/2017 Gender: Female Date of : 1975 Admit Type: Outpatient Procedure: Colonoscopy Proceduralist: Igor Benson MD , Milagros Hyde (Nurse) Referring MD: Viviane Marie Indications/Pre-Op Diagnosis: Iron deficiency anemia Medications: Fentanyl 100 micrograms IV, Midazolam 4 mgIV, The level of sedation administered wasmoderate Procedure Description: The patient had risks, benefits and alternatives explained to andgave informed consent. The patient had a stable cardiopulmonary status and judged an adequate candidate for conscious sedation. The [id number] was passed through the anus and advanced tothe terminal ileum. The colonoscopy was performed without difficulty. The patient tolerated the procedure well. The quality of the bowel preparation was good. The terminal ileum, ileocecal valve,appendiceal orifice, and rectum were photographed. Complications: No immediate complications. Estimated Blood Loss & Specimen: Estimated blood loss: none. Specimen collected - Yes and sent to Laboratory Findings: The perianal and digital rectal examinations were normal. The terminal ileum appeared normal. A 3 mm polyp was found in the cecum. The polyp was sessile. The polyp was removed with a cold biopsy forceps. Resection and retrieval were complete. The exam was otherwise without abnormality on direct and retroflexion views. Impressions/Post-Op Diagnosis: - The examined portion of the ileum was normal. - One 3 mm polyp in the cecum, removed with a cold biopsy forceps. Resected and retrieved. - The examination was otherwise normal on direct and retroflexionviews. Recommendation: - Patient has a contact number available for emergencies. The signsand symptoms of potential delayed complications were discussed with the patient. Return to normal activities tomorrow. Written discharge instructions were provided to the patient. - Resume previous diet. - Continue present medications. - Await pathology results. - Repeat colonoscopy is recommended. The colonoscopy date will be determined after pathology results from today's exam become available for review. Moderate Sedation: Moderate (conscious) sedation was administered by the endoscopy nurse and supervised by the endoscopist. The following parameters were monitored: oxygen saturation, heart rate, respiratory rate, blood pressure, adequacy of pulmonary ventilation and reponse to care. [facility] flow[facility]ets and nursing notes for moderate sedation details. Total physician intraservice time was 28 minutes. Igor Benson MD 01/21/2017 11:13:25 AM This report has been signed electronically. Note Initiated On: 01/21/2017 10:03 AM Procedure Code(s): --- Professional --- 26786, Colonoscopy, flexible; with biopsy, single or multiple Diagnosis Code(s): --- Professional --- D12.0, Benign neoplasm of cecum D50.9, Iron deficiency anemia, unspecified CPT copyright 2016 [employer]. All rights reserved. The codes documented in this report are preliminary and upon info print press operator reviewmay be revised to meet current compliance requirements. Scope In: 10:45:31 AM Scope Withdrawal Time 0 hours 12 minutes 35 seconds Scope Out: 11:09:19 AM us Igor Benson MD PROCEDURE ORD Final Res ult from Last 3 Months or Most Recently Relevant to Health Maintenance Insurance HP * Guarantor: LIBERTAD MEEKS Account Type Relation to Patient Date of Phone Billing Address Personal/Family Spouse [phone] [place] [address] . [place] [address] Care Teams Media Professional Relationship Specialty Start Date End Date Tiki Godinez MD [address] [place] [address] PCP - General Family Practice 05/27/22 Cony López MD ICT EDUCATOR Unknown Physician Specialty 01/24/13
[2024-11-26 15:04] VITALS: BP 114/87; PULSE 92; RESP 20; TEMP 36.6; O2SAT 95; BMI 89.8
--- NOTE | 2024-11-26 15:47 | ED.GENADULT ---
HPI - General Adult General Chief complaint: Neck Injury/Pain Stated complaint: nerve pain from left side face down to left arm Time Seen by Provider: 11/26/24 15:34 Source: patient Mode of arrival: ambulatory Limitations: no limitations History of Present Illness HPI narrative: Patient is a 49-year-old female coming in today complaining of neck pain that started 3 days ago. The pain is progressively gotten worse. It is now located behind and around her ear and in the back of her scalp. She states that she can hardly touch her head because it is so tender. She noticed bumps on her scalp on Tuesday, 2 days ago. She denies fevers or chills. No nausea or vomiting. Patient is currently undergoing treatment for an ankle injury that will require surgery and she is very anxious about this. She denies ringing in her ear, pain inside her ear. She denies rash on her face, no changes in her vision. Related Data Home Medications ?Medication ?Instructions ?Recorded ?Confirmed atenolol 25 mg tablet 25 mg PO DAILY 04/02/23 11/26/24 fluoxetine 20 mg capsule 20 mg PO DAILY 04/02/23 11/26/24 fluoxetine 40 mg capsule 40 mg PO DAILY 04/02/23 05/20/24 tramadol 50 mg tablet 50 mg PO DAILY PRN 04/02/23 11/26/24 duloxetine 60 mg capsule,delayed 60 mg PO DAILY 11/26/24 11/26/24 release sertraline 50 mg tablet PO 11/26/24 Previous Rx's ?Medication ?Instructions ?Recorded valacyclovir 1 gram tablet 1,000 mg PO TID #21 tabs 11/26/24 Allergies Allergy/AdvReac Type Severity Reaction Status Date / Time diphenhydramine (From Allergy Intermediate Verified 05/20/24 14:48 Benadryl) levofloxacin Allergy Intermediate Rash Verified 05/20/24 14:48 vancomycin Allergy Intermediate Rash Verified 05/20/24 14:48 Review of Systems Status of ROS: Reports: 10 or more systems reviewed and unremarkable except as noted in History and below [facility] Social History Smoking Status: Former smoker Do you use any of these nicotine containing products: None Second hand tobacco smoke exposure: No How often do you have a drink containing alcohol: never AUDIT-C Alcohol total score: 0 Non-prescribed substance use: denies use service: No Exam Narrative: Exam Narrative: Obese, well-developed patient in no acute distress. Alert and oriented. Answers questions appropriately. Mood and affect are appropriate. Thoughts are goal oriented and rational. No tangential or magical thinking noted. Patient speaks in full sentences without needing to catch her breath. HEENT: Normocephalic atraumatic. Pupils are equally round reactive to light. Extraocular muscles are intact. Conjunctivae are moist without any icterus noted. Moist mucous membranes. Posterior pharynx is normal. Neck is soft without any lymphadenopathy or thyromegaly. No masses are appreciated. TMs are obscured by low bilaterally by cerumen. Patient has a vesicular rash on the left side of the posterior scalp. The rash does not cross the midline. There is no rash in the ear, face or eye. There are no crusted lesions observed. The rash is very tender to touch. She does not have the same tenderness of the neck. She has full range of motion at the neck with tenderness that radiates into the left scalp. Skin: Well perfused. Const: Vital Signs, click to edit/add: Vital Signs - 24 hr 11/26/24 15:04 Temperature 97.9 F Pulse Rate [Pulse Oximeter] 92 Respiratory Rate 20 Blood Pressure [Ri ght Upper Arm] 114/87 Pulse Oximetry 95 Oxygen Delivery Me thod Room Air Course Vital Signs Vital signs: Initial Vital Signs Temperature 97.9 F 11/26/24 15:04 Temperature Source Temporal Artery Scan 11/26/24 15:04 Pulse Rate 92 11/26/24 15:04 Respiratory Rate 20 11/26/24 15:04 Blood Pressure 114/87 11/26/24 15:04 Blood Pressure Mean 96 11/26/24 15:04 Blood Pressure Position Sitting 11/26/24 15:04 Pulse Oximetry 95 11/26/24 15:04 Oxygen Delivery Method Room Air 11/26/24 15:04 Vital Signs Temperature 97.9 F 11/26/24 15:04 Pulse Rate 92 11/26/24 15:04 Respiratory Rate 20 11/26/24 15:04 Blood Pressure 114/87 11/26/24 15:04 Pulse Oximetry 95 11/26/24 15:04 Oxygen Delivery Method Room Air 11/26/24 15:04 Temperature 97.9 F 11/26/24 15:04 Pulse Rate 92 11/26/24 15:04 Respiratory Rate 20 11/26/24 15:04 Blood Pressure 114/87 11/26/24 15:04 Pulse Oximetry 95 11/26/24 15:04 Oxygen Delivery Method Room Air 11/26/24 15:04 Medical Decision Making MDM Narrative Medical decision making narrative: 49-year-old female with appears to be a classic case of shingles. Patient is not immunocompromised. Will treat with valacyclovir 1000 mg p.o. t.i.d. for 7 days. Patient also be sent home with oxycodone. Discharge Plan Discharge Clinical Impression: Shingles Patient Disposition: Home, Self-Care Condition: Stable Instructions: Shingles (ED) Additional Instructions: 8 tablets of oxycodone sent to [facility]. Prescriptions: New valacyclovir 1 gram tablet 1,000 mg PO TID Qty: 21 0RF No Action sertraline 50 mg tablet PO duloxetine 60 mg capsule,delayed release(DR/EC) 60 mg PO DAILY fluoxetine 40 mg capsule 40 mg PO DAILY atenolol 25 mg tablet 25 mg PO DAILY tramadol 50 mg tablet 50 mg PO DAILY PRN fluoxetine 20 mg capsule 20 mg PO DAILY Follow Up/Referrals: Tiki Godinez MD [Primary Care Provider, Family Practice] Stand Alone Forms: [email or web address] Info Instructions
--- OUTSIDE RECORDS SUMMARY | 2024-11-26 15:54 | XMS_ITS | Clinical Summary ---
Author Organization [facility] Address [address] , [address] [place] [address] Phone Care Team Providers Care Pre Assembly Wirer Name Role Phone Kaur Lieberman Unavailable Unavailable Conditions or Problems Problem Name Problem Code Onset Date Status Entry Date Provider Comment Standard Description Annotate Elbow pain, unspecified 58591405 (SNOMED CT) Active Kal Méndez MD Pain of elbow region Hand numbness 462078200 (SNOMED CT) Active Kal Méndez MD Numbness of hand Median neuropathy, right 072279462 (SNOMED CT) Active Kal Méndez MD Median [...] Procedures Code Procedure Name Date Entry Date CPT-00901 Nerve Conduction 9-10 studies CPT-05155 EMG with NCS (5+ muscles) - 1 limb 05/17 Vital Signs No information available. Immunizations No information available. Advance Directives No information available.
== END 2024-11-26 16:05 | disposition home or self-care (01) ==
PROVIDERS: Emergency Provider Family Medicine; PCP Family Medicine
DX: B02.9 Zoster without complications (principal)
CPT/HCPCS: 99283; 99284